=== PATIENT | male | born 1985 | race Caucasian/White ===

== ENCOUNTER 2019-09-17 21:19 | Emergency (ER) | payer BC ==
[~2019-09-17] VITALS: Ht 177.8 cm; Wt 62.5 kg
[2019-09-17] MEDS ORDERED: FLUORESCEIN OPHTHALMIC 1 MG STRIP ONE (21:46)
[2019-09-17] MEDS ORDERED: PROPARACAINE OPHTH 0.5%, 15ML ONE (21:46)
[2019-09-17] MEDS ORDERED: FLUORESCEIN OPHTHALMIC 1 MG STRIP EACHEYE ONE (22:00)
[2019-09-17] MEDS ORDERED: PROPARACAINE OPHTH 0.5%, 15ML EACHEYE ONE (22:00)
--- NOTE | 2019-09-17 22:04 | NUR ---
PT C/O OF L EYE IRRITATION, ONSET ~1MONTH AGO AT WORK, WAS WELDING AND FELT SOMETHING IN HIS EYE. SEEN AT [facility] 3 DAYS POST INCIENT. STATES INTERMITTENT PHOTOPHOBIA & BLURRINESS.
[2019-09-17 22:34] VITALS: BP 128/86
== END 2019-09-17 22:47 | disposition home or self-care (01) ==
LOC: ED 22:14
DX: H57.13 Ocular pain, bilateral (principal); F17.210 Nicotine dependence, cigarettes, uncomplicated
CPT/HCPCS: 99283